=== PATIENT | female | born 1995 | race Caucasian/White ===

== ENCOUNTER 2016-09-17 04:34 | Emergency (ER) | payer MEDICAID ==
[~2016-09-17] VITALS: Ht 160 cm; Wt 53.5 kg
[2016-09-17 04:48] VITALS: BP 133/86
== END 2016-09-17 08:19 | disposition home or self-care (01) ==
LOC: ER 04:37
DX: O26.892 Other specified pregnancy related conditions, second trimester (principal); O99.332 Smoking (tobacco) complicating pregnancy, second trimester; H66.91 Otitis media, unspecified, right ear; J40 Bronchitis, not specified as acute or chronic; F17.210 Nicotine dependence, cigarettes, uncomplicated; Z3A.19 19 weeks gestation of pregnancy